=== PATIENT | female | born 1985 | race Caucasian/White ===

== ENCOUNTER → 2021-12-07 | Outpatient (CLI) | payer OTHER ==
[~2021-12-07] MED LIST: ADIPEX-P37.5 MG PO; ADULT MULTIVI200 MCG PO; APRISO0.375 GM PO; BIOTIN1 MG PO; CELEXA20 MG PO; CLARITIN10 M2 PO; IMITREX100 MG PO; ULTRAM50 MG PO; WELLBUTRIN XL150 MG PO
[2021-12-07 15:41] LABS: HEMOGLOBIN 12.9 gm/dl (12.3-15.3); RED BLOOD COUNT 4.09 M/UL (4.00-5.10); WHITE BLOOD COUNT 11.3 K/UL (4.5-11.0)
[2021-12-07 16:05] LABS: BUN/CREATININE RATIO 6 (0-10)
[2021-12-08 08:16] LABS: VITAMIN D, 25-HYDROXY 60.9 ng/mL (30.0-100.0)
[2021-12-08 09:16] LABS: SARS-COV-2 SEMI-QUANT TOTAL AB <0.8 U/mL (Negative<0.8); SARS-COV-2 SPIKE AB INTERP Negative (.)
== END ==
LOC: LAB 15:07
PROVIDERS: Nurse Practitioner Family
DX: Z13.220 Encounter for screening for lipoid disorders (principal); Z01.84 Encounter for antibody response examination; F32.A Depression, unspecified; R53.83 Other fatigue; K52.9 Noninfective gastroenteritis and colitis, unspecified; D50.9 Iron deficiency anemia, unspecified; M25.50 Pain in unspecified joint; G43.009 Migraine without aura, not intractable, without status migrainosus; K50.00 Crohn's disease of small intestine without complications; E53.8 Deficiency of other specified B group vitamins; F40.241 Acrophobia; Z20.822 Contact with and (suspected) exposure to COVID-19
CPT/HCPCS: 36415; 80053; 80061; 81001; 82607; 84439; 84443; 85025